=== PATIENT | female | born 1995 | race Caucasian/White ===

== ENCOUNTER 2019-02-08 08:40 | Emergency (ER) | payer OTHER ==
[2019-02-08 09:27] LABS: APPEARANCE,URINE CLOUDY; BILIRUBIN,URINE NEGATIVE (NEGATIVE); COLOR,URINE YELLOW; GLUCOSE, URINE NEGATIVE (NEGATIVE); KETONES,URINE NEGATIVE (NEGATIVE); LEUKOCYTE ESTERASE,URINE NEGATIVE (NEGATIVE); NITRITE,URINE NEGATIVE (NEGATIVE); PROTEIN,URINE 30 mg/dL (NEGATIVE); URINE SPECIFIC GRAVITY 1.021; UROBILINOGEN,URINE NEGATIVE mg/dL (<2.0)
--- NOTE | 2019-02-08 09:45 | ER Document Report ---
ED General - General Chief Complaint: Vaginal Bleeding Stated Complaint: VAGINAL BLEEDING Time Seen by Provider: 02/08/19 09:27 Primary Care Provider: [facility] [Provider Group] - Follow up as needed ALVARO GRIDER DO [Primary Care Provider] - Follow up as needed TRAVEL OUTSIDE OF THE [place] IN LAST 30 DAYS: No - HPI Notes: Patient is a 23-year-old female with no significant past medical history who presents emergency department complaining of mid lower pelvic to left lower pelvic pain is described as sharp that began last evening. Patient states that she has also been having menstrual bleeding and this is about the time when she is supposed to have her next cycle. She otherwise has not noticed any vaginal odor or discharge. She is eating and drinking without difficulty. She is having normal bowel movements and urinating normally. Denies drug allergies. No surgical history to her abdomen aside from appendectomy. Denies any headache, fever, URI, sore throat, chest pain, palpitations, syncope, cough, shortness of breath, wheeze, dyspnea, nausea/vomiting/diarrhea, urinary retention, dysuria, hematuria, back pain, or rash. - Related Data Allergies/Adverse Reactions: No Known Allergies Allergy (Verified 02/08/19 08:43) Past Medical History - Social History Smoking Status: Never Smoker Chew tobacco use (# tins/day): No Frequency of alcohol use: Occasional Drug Abuse: None Family History: Reviewed & Not Pertinent Patient has suicidal ideation: No Patient has homicidal ideation: No Renal/ Medical History: Denies: Hx Peritoneal Dialysis Past Surgical History: Reports: Hx Appendectomy Review of Systems - Review of Systems -: Yes All other systems reviewed and negative Physical Exam - Vital signs Vitals: Temp Pulse Resp BP Pulse Ox 98.3 F 79 18 110/66 98 02/08/19 08:45 02/08/19 08:45 02/08/19 08:45 02/08/19 08:45 02/08/19 08:45 - Notes Notes: PHYSICAL EXAMINATION: GENERAL: Well-appearing, well-nourished and in no acute distress. HEAD: Atraumatic, normocephalic. EYES: Pupils equal round and reactive to light, extraocular movements intact, conjunctiva are normal. ENT: Nares patent, oropharynx clear without exudates. Moist mucous membranes. EAC's clear bilaterally. TMs intact bilaterally without erythema fluid or perforation. No tonsillar hypertrophy or erythema. No sinus tenderness. NECK: Normal range of motion, supple without lymphadenopathy LUNGS: Breath sounds clear to auscultation bilaterally and equal. No wheezes rales or rhonchi. HEART: Regular rate and rhythm without murmurs ABDOMEN: Soft, nontender, nondistended abdomen. No guarding, no rebound. No masses appreciated. Normal bowel sounds present. CVA tenderness negative bilaterally. Female (witnessed by female RN, Jeaneth): No inguinal adenopathy. External genitalia without erythema, lesions, or masses. Vaginal mucosa pink. Cervix parous, pink, and with bloody discharge. Uterus is smooth. No adnexal tenderness. No CMT Musculoskeletal: FROM to passive/active. Strength 5+/5. Extremities: No cyanosis/clubbing/edema b/l. Peripheral pulses 2+. Capillary refill less than 3 seconds. NEUROLOGICAL: Normal speech, normal gait. PSYCH: Normal mood, normal affect. SKIN: Warm, Dry, normal turgor, no rashes or lesions noted. Course - Re-evaluation Re-evalutation: 02/08/19 11:31 Patient is an afebrile, well-hydrated, 23-year-old female who presents to the ED with vaginal bleeding/pelvic pain unspecified, suspect relation with her menstrual cycle. She also has BV. Vitals are acceptable without any significant tachycardia, tachypnea, or hypoxia. PE is otherwise unremarkable. Urinalysis and hCG are unremarkable for any acute pathology. See wet mount results. Chlam/gonorrhea tests are pending. Patient declined wanting any treatment for chlamydia/gonorrhea at this time and is aware that she may have the return if any test comes back positive. Patient is nontoxic-appearing is tolerating p.o. without any difficulties. Transvaginal ultrasound was also unremarkable for any acute pathology. No other labs or imaging warranted at this time based on H&P. Low suspicion/risk for acute appendicitis, bowel obstruction, acute cholecystitis, acute cholangitis, perforated diverticulitis, incarcerated hernia, pancreatitis, perforated ulcer, peritonitis, sepsis, pelvic inflammatory disease, ectopic , tubo-ovarian abscess, ovarian torsion, or other systemic emergent condition at this time. Patient is aware that her condition can change from initial presentation and she needs to monitor symptoms closely and seek medical attention if any acute changes. I will send her home with prescription for Flagyl. Conservative measures otherwise for symptoms. Recheck with your PCM/OBGYN in 3-5 days. Return to the ED with any wors ening/concerning symptoms otherwise as reviewed in discharge. Patient is in agreement. - Vital Signs Vital signs: Temp Pulse Resp BP Pulse Ox 98.3 F 79 18 110/66 98 02/08/19 08:45 02/08/19 08:45 02/08/19 08:45 02/08/19 08:45 02/08/19 08:45 - Laboratory Laboratory results interpreted by me: 02/08/19 08:55 Urine Protein 30 H Urine Blood LARGE H Procedures - Pelvic Exam Pelvic exam Time completed: 10:45 Cultures obtained: Yes Wet prep obtained: Yes Witnessed by: Jeaneth Discharge - Discharge Clinical Impression: Pelvic pain, Vaginal bleeding, BV (bacterial vaginosis) Condition: Stable Disposition: HOME, SELF-CARE Instructions: Vaginosis, Bacterial ([facility]), Pelvic Pain ([facility]) Additional Instructions: Maintain fluid intake Proper hygienic technique Keep the skin clean Safe sexual practices with condoms everytime Tylenol/ibuprofen as needed Check in with the health department this week for further testing if warranted Your chlamydia/Ghon test are pending and you will be notified if positive results; you may call in 1 day for the results as well F/u with your PCM/OBGYN in 3-5 days for a recheck Return to the ED with any development of PRASAD/fever, trouble with vision, eye redness, worsening pain, urethral discharge, urinary retention, blood in the urine, flank pain, abdominal pain, n/v, Chest Pain, shortness of breath, joint pains, trouble breathing, or any other worsening/concerning symptoms as needed otherwise. Prescriptions: Metronidazole [Flagyl] 500 mg PO BID #14 tablet Referrals: ALVARO GRIDER DO [Primary Care Provider] - Follow up as needed [facility] [Provider Group] - Follow up as needed
--- NOTE | 2019-02-08 10:49 | RADIOLOGY REPORT (SQ) ---
EXAM DESCRIPTION: U/S NON OB PEL TV W/DOPPLER COMPLETED DATE/TIME: 02/08/2019 10:16 am REASON FOR STUDY: abd pain, bleeding negative urine HCG COMPARISON: None. TECHNIQUE: Dynamic and static grayscale images acquired of the pelvis via transvaginal approach and recorded on PACS. Additional selected color Doppler and spectral images recorded. LIMITATIONS: None. FINDINGS: UTERUS: Contour normal. No mass. Uterus measures 7 x 4.6 x 3.7 cm in size ENDOMETRIAL STRIPE: No focal or generalized thickening. No masses. Endometrial stripe 4 mm in thickn ess CERVIX: No nabothian cysts. Cervix closed, 2.7 cm in length. RIGHT OVARY AND DOPPLER: Normal size, 2.8 x 2 x 1.9 cm in size. No worrisome masses. Normal arterial vascular flow without evidence for torsion. LEFT OVARY AND DOPPLER: Normal size, 2.0 x 2.5 x 1.7 cm in size. No worrisome masses. Normal arterial vascular flow without evidence for torsion. FREE FLUID: None noted. OTHER: No other significant finding. IMPRESSION: NORMAL TRANSVAGINAL PELVIC ULTRASOUND. TECHNICAL DOCUMENTATION: JOB ID: [id number] [employer]- All Rights Reserved Rev-03/08 Reading location - IP/workstation name: [email or web address]
[2019-02-08 11:27] LABS: BACTERIA (WET MOUNT) 3+ BACTERIA SEEN; EPITHELIALS (WET MOUNT) 3+ EPITHELIALS SEEN; RBCS (WET MOUNT) 4+ RBCS SEEN; T.VAGINALIS (WET MOUNT) NO TRICHOMONAS SEEN; WBCS (WET MOUNT) 1+ WBCS SEEN; YEAST (WET MOUNT) NO YEAST SEEN
[2019-02-08 11:48] VITALS: BP 115/73
[2019-02-08 12:58] LABS: CHLAM PCR NOT DETECTED (NOT DETECT); GON PCR NOT DETECTED (NOT DETECT)
== END 2019-02-08 11:47 | disposition home or self-care (01) ==
LOC: ER 08:40
DX: N93.9 Abnormal uterine and vaginal bleeding, unspecified (principal); N76.0 Acute vaginitis; B96.89 Other specified bacterial agents as the cause of diseases classified elsewhere; R10.2 Pelvic and perineal pain
CPT/HCPCS: 76830; 81001; 81025; 87210; 87491; 87591; 93976; 99284